=== PATIENT | male | born 1995 | race Caucasian/White ===

== ENCOUNTER 2016-11-07 22:25 | Emergency (ER) | payer SELFPAY | END 2016-11-07 22:48 | disposition home or self-care (01) | LOC: ER 22:25 | DX: S02.5XXA Fracture of tooth (traumatic), initial encounter for closed fracture (principal); S10.91XA Abrasion of unspecified part of neck, initial encounter; K02.9 Dental caries, unspecified; M54.5 Low back pain; F17.210 Nicotine dependence, cigarettes, uncomplicated; Z88.0 Allergy status to penicillin; Y02.8XXA Assault by pushing or placing victim in front of other moving object, initial encounter ==